=== PATIENT | male | born 1970 | race Caucasian/White ===

== ENCOUNTER 2021-01-01 08:31 | Outpatient (CLI) | payer OTHER, SELFPAY ==
--- NOTE | 2021-01-01 08:55 | EST_ITS ---
Patient Info Name: Kwaku Chavez Age: 50 years : 1970 Gender: Male Ht: 72 in Wt: 247 lbs BSA: 2.42 m2 HR: 86 bpm BP: 167 / 110 mmHg Heart Rhythm: Sinus Rhythm Exam Date: 01/01/2021 9:23 AM Exam Location: [facility] Patient Status: Outpatient Admit Date: 01/01/2021 Staff Ordering Physician: Hipolito Vo PA-C Passenger Car Upholsterer Apprentice: Faustina Yip RDCS Attending Provider: Hipolito Vo PA-C Exercise Technologist: Jeni Busch RDCS Exercise Physician: Carmelo Vlae DO Exam Type: CA stress echo Study Info Indications I10 - Essential (primary) hypertension Treadmill exercise stress echocardiogram is performed. Summary 1. 1. Negative Andrew exercise stress test for ischemic ST changes by ECG criteria. 2. 2. Good functional capacity, achieving 10 METs of workload. 3. 3. Baseline hypertension. 4. 4. Appropriate HR response to exercise. 5. 5. Appropriate HR recovery at 1 minute post exercise. 6. 6. Negative stress echocardiogram for ischemia by wall motion analysis. 7. 7. Patient informed of the above results. Stress Echo Findings Left Ventricle Appropriate increase in LV endocardial thickening with systole. Appropriate augmentation of contractility with systole. No wall motion abnormality. Left Ventricle Normal LV systolic function, no wall motion abnormality. Protocol: Andrew Stress ECG Details Stage: REST Duration (min): 4 min : 54 sec Speed (mph): 0.0 Grade (%): 0 HR (bpm): 86 SBP (mmHg): 167 DBP (mmHg): 110 METS: --- Stage: REST Duration (min): 13 min : 41 sec Speed (mph): 0.0 Grade (%): 0 HR (bpm): 105 SBP (mmHg): 167 DBP (mmHg): 110 METS: --- Stage: STAGE 1 Duration (min): 1 min : 0 sec Speed (mph): 1.7 Grade (%): 10 HR (bpm): 108 SBP (mmHg): 167 DBP (mmHg): 110 METS: --- Stage: STAGE 1 Duration (min): 2 min : 0 sec Speed (mph): 1.7 Grade (%): 10 HR (bpm): 118 SBP (mmHg): 167 DBP (mmHg): 110 METS: --- Stage: STAGE 1 Duration (min): 3 min : 0 sec Speed (mph): 1.7 Grade (%): 10 HR (bpm): 123 SBP (mmHg): 168 DBP (mmHg): 103 METS: --- Stage: STAGE 2 Duration (min): 1 min : 0 sec Speed (mph): 2.5 Grade (%): 12 HR (bpm): 126 SBP (mmHg): 168 DBP (mmHg): 103 METS: --- Stage: STAGE 2 Duration (min): 2 min : 0 sec Speed (mph): 2.5 Grade (%): 12 HR (bpm): 132 SBP (mmHg): 165 DBP (mmHg): 101 METS: --- Stage: STAGE 2 Duration (min): 3 min : 0 sec Speed (mph): 2.5 Grade (%): 12 HR (bpm): 134 SBP (mmHg): 165 DBP (mmHg): 101 METS: --- Stage: STAGE 3 Duration (min): 1 min : 0 sec Speed (mph): 3.4 Grade (%): 14 HR (bpm): 143 SBP (mmHg): 199 DBP (mmHg): 95 METS: --- Stage: STAGE 3 Duration (min): 2 min : 0 sec Speed (mph): 3.4 Grade (%): 14 HR (bpm): 149 SBP (mmHg): 199 DBP (mmHg): 95 METS: --- Stasveta
== END 2021-01-01 08:32 | disposition home or self-care (01) ==
PROVIDERS: PCP Family Medicine; Visit Provider Physician Assistant
DX: E11.9 Type 2 diabetes mellitus without complications (principal); E66.9 Obesity, unspecified; F17.200 Nicotine dependence, unspecified, uncomplicated; G47.33 Obstructive sleep apnea (adult) (pediatric); I10 Essential (primary) hypertension
CPT/HCPCS: 93351

== ENCOUNTER 2021-06-07 18:41 | Emergency (ER) | payer OTHER, SELFPAY ==
--- NOTE | ~2021-06-07 | XR_ITS ---
EXAMINATION: XR chest 2V EXAM DATE: 06/07/2021 21:33 INDICATION: Dyspnea, Sob/Weak/Fatigue Since 04/03/21, No Cardiac Hx. TECHNIQUE: Frontal and lateral projections of the chest obtained and reviewed. There is no prior alyssa dy for comparison. FINDINGS: The lungs are clear. There are no pleural effusions. The cardiomediastinal silhouette is within normal limits. There is no pneumothorax suspected. The bones and soft tissues are unremarkab le. There are cholecystectomy clips. IMPRESSION: No acute cardiopulmonary findings. Reviewed, dictated and finalized at location G. MATIC GRINDING MACHINE OPERATOR
[2021-06-07 19:00] VITALS: BP 150/106; PULSE 98; RESP 16; TEMP 36.1; O2SAT 99
[2021-06-07 21:13] VITALS: BP 135/101; PULSE 92; RESP 16; O2SAT 99
--- NOTE | 2021-06-07 21:20 | ECG_ITS ---
Measurements Intervals [place] Rate: 98 P: 7 NV: 162 QRS: 17 QRSD: 95 T: -8 QT: 326 QTc: 416 Interpretive Statements SINUS RHYTHM DELAYED PRECORDIAL R/S TRANSITION CONSIDER INFERIOR INFARCT, AGE INDETERMINATE BORDERLINE T WAVE ABNORMALITY- ANTERIOR LEADS BASELINE WANDER- I, II, III, AVL, AVF ABNORMAL ECG Electronically Signed On 06-08-2021 6:11:49 COTTAGE CHEESE MAKER by Carmelo Vale D.O.
--- NOTE | 2021-06-07 21:33 | ED.URI ---
HPI - URI/Sore Throat General Chief Complaint: Upper Respiratory Infection Stated Complaint: SOB/HIGH HR/CHEST BURNING Time Seen by Provider: 06/07/21 21:07 Source: patient History of Present Illness HPI Narrative: Patient presents with not feeling well. Reports that symptoms for the past couple weeks ports when he is resting he feels fine but when he gets up and walks around feels shortness of breath feels lightheaded and dizzy. Also reports intermittent chest aches. He also reports his heart rate would jump up to the 150s and 170s with physical activity sometimes. Denies any fevers denies cough denies any known sick contacts versus action against Covid. Also reports increased urinary frequency over this time. Related Data Allergies Allergy/AdvReac Type Severity Reaction Status Date / Time No Known Allergies Allergy Mild Verified 06/07/21 21:13 Review of Systems Review of Systems: CONSTITUTIONAL: Denies fever, chills, or sweats. EYES: Denies visual changes, redness, or discharge. ENT: Denies rhinorrhea, congestion, sore throat, or otalgia. CARDIOVASCULAR: Reports fast heart rate and chest pain RESPIRATORY: Denies cough GASTROINTESTINAL: Denies abdominal pain, nausea, vomiting, or diarrhea. GENITOURINARY: Denies dysuria or hematuria. SKIN: Denies rash or itching. MUSCULOSKELETAL: Denies back pain, joint pain, or myalgia. NEUROLOGIC: Denies headache, numbness, or focal weakness. PSYCHIATRIC: Denies anxiety or depression. All systems reviewed & are unremarkable except as noted in HPI and below PMFSH Past Medical History Medical History (Updated 06/07/21 @ 23:51 by Asif Head MD) Essential (primary) hypertension Mixed dyslipidemia Type 2 diabetes mellitus without complications Family History Family History Father Hypertension Family history of type 2 diabetes mellitus Mother Hypertension Family history of lupus erythematosus Grandparent Acute myocardial infarction, Onset Age: 36 Social History Social History Tobacco type: e-cigarettes/vaping Alcohol intake: never Exam Narrative: GENERAL: Well-appearing, well-nourished, and in no acute distress. HEAD: Normocephalic, atraumatic. EYES: PERRLA and EOMI. ENT: Nares clear, no rhinorrhea or epistaxis. Mucous membranes moist. NECK: Supple. No masses. No JVD CHEST: Clear to auscultation. No respiratory distress. No wheezes rales or rhonchi HEART: Regular rate and rhythm. No murmur heard. Normal peripheral pulses. ABDOMEN: Soft, nontender, nondistended, normal active bowel sounds. EXTREMITIES: Normal range of motion. No edema. SKIN: Warm, dry, no rash. NEURO: No focal deficits. Alert and oriented x3. PSYCH: Normal mood and affect. Course Reevaluation(s) Reevaluation #1: Patient reports feeling much improved results reviewed with patient patient is comfortable outpatient plan. Date: 06/07/21 Time: 23:49 Vital Signs Vital signs: Vital Signs Temperature 36.1 C L 06/07/21 19:00 Pulse Rate 98 06/07/21 19:00 Respiratory Rate 16 06/07/21 19:00 Blood Pressure 150/106 H 06/07/21 19:00 Pulse Oximetry 99 06/07/21 19:00 Temperature 36.1 C L 06/07/21 19:00 Pulse Rate 69 06/08/21 00:07 Respiratory Rate 15 06/08/21 00:07 Blood Pressure 112/74 06/08/21 00:07 Pulse Oximetry 98 06/08/21 00:07 MDM - URI/Sore Throat MDM Narrative Medical decision making narrative: H&P as above, vss, pt looks clinically well, exam reassuring, labs reassuring exception of A1c which was drawn this morning, img clinically unremarkable, additional labs/img considered, symptomatic relief available as needed, on reevaluation pt continues to looks clinically well. Suspect symptoms are related to poorly controlled diabetes given his elevation in A1c there is no evidence of DKA, dns ACS, severe sepsis. plan to tx/monitor as op w/ pcm f/u findi
[2021-06-07 21:37] VITALS: BP 139/93; PULSE 75; RESP 20; O2SAT 98
[2021-06-07 21:52] LABS: Glucose Point of Care 242 mg/dl (65-105)
[2021-06-07] MEDS: SODIUM CHLORIDE 0.9% IV 1,000 ML 999 ML IV CONT (21:57)
[2021-06-07 21:58] LABS: Basophils Absolute Auto 0.1 K/mm3 (0.0-0.1); Basophils Percent Auto 0.8 % (0.2-1.2); Eosinophils Absolute Auto 0.1 K/mm3 (0-0.3); Eosinophils Percent Auto 1.3 % (0-4.4); Hematocrit 44.2 % (42.0-52.0); Hemoglobin 15.6 g/dL (14.0-18.0); Immature Granulocyte Absolute 0.01 K/mm3 (0.00-0.031); Immature Granulocyte Percent A 0.1 % (0-0.5); Lymphocytes Absolute Auto 2.76 K/mm3 (0.9-3.2); Lymphocytes Percent Auto 35.2 % (18.3-44.2); Mean Corpuscular HGB Conc 35.3 g/dl (32-36); Mean Corpuscular Hemoglobin 29.6 pg (26-34); Mean Corpuscular Volume 83.9 fl (80-100); Monocytes Absolute Auto 0.5 K/mm3 (0.1-0.6); Monocytes Percent Auto 6.5 % (2.6-8.5); Neutrophils Absolute Auto 4.4 K/mm3 (1.3-6.7); Neutrophils Percent Auto 56.1 % (45.5-73.1); Platelet Count Result 236 k/mm3 (150-375); Red Blood Count 5.27 M/mm3 (4.6-6.20); Red Cell Distribution Width 11.6 % (11.5-14.5); White Blood Count 7.8 K/mm3 (4.5-10.0)
[2021-06-07 22:15] LABS: Add Urine Microscopic? YES; Appearance Urine Clear (Clear); Bilirubin Urine Negative (Negative); Blood Urine Negative (Negative); Color Urine Yellow (Yellow); Glucose Urine UA 3+ mg/dL (Negative); Ketones Urine Negative (Negative); Leukocyte Esterase Ur Negative LEU/UL (Negative); Mucus Urine Rare /lpf; Nitrate Urine Negative (Negative); Protein Urine Negative (Negative); RBC Urine 0-2 /hpf (0-2); Specific Grav Ur 1.028 (1.001-1.035); Urobilinogen Urine Negative mg/dL (<2.0); WBC Urine 0-3 /hpf
[2021-06-07 22:52] LABS: Alanine Aminotransferase 34 U/L (4-50); Albumin Level 4.4 g/dL (3.5-5.1); Alkaline Phosphatase 88 U/L (38-126); Anion Gap 8 mmol/L (8-16); Aspartate Amino Transferase 23 U/L (17-59); Bilirubin,Total 0.6 mg/dL (0.2-1.3); Blood Urea Nitrogen 21 mg/dL (9-20); Calcium 9.3 mg/dL (8.4-10.2); Carbon Dioxide 29 mmol/L (22-30); Chloride 99 mmol/L (98-107); Estimated CRCL calculation 91 ml/min; Estimated Glomerular Filt Rate > 60; Glucose 223 mg/dL (65-110); Potassium 3.6 mmol/L (3.4-5.0); Sodium 136 mmol/L (137-145)
[2021-06-07 23:03] LABS: Troponin I < 0.012 ng/mL (0.000-0.034)
[2021-06-08 00:07] VITALS: BP 112/74; PULSE 69; RESP 15; O2SAT 98
== END 2021-06-08 00:08 | disposition home or self-care (01) ==
PROVIDERS: Emergency Provider Emergency Medicine; PCP Family Medicine
DX: E11.65 Type 2 diabetes mellitus with hyperglycemia (principal); I10 Essential (primary) hypertension; E78.2 Mixed hyperlipidemia; F17.290 Nicotine dependence, other tobacco product, uncomplicated; Z79.84 Long term (current) use of oral hypoglycemic drugs
CPT/HCPCS: 36415; 71046; 80053; 81001; 82948; 84484; 85025; 93005; 96360; 99284; J7030

== ENCOUNTER 2022-02-11 00:13 | Day surgery (SDC) | payer OTHER, SELFPAY ==
[2022-01-31 13:12] VITALS: BMI 30.2
[2022-02-11 08:00] VITALS: BP 126/96; PULSE 82; RESP 18; TEMP 36.3; O2SAT 100; BMI 30.7
[2022-02-11 08:22] LABS: Glucose Point of Care 121 mg/dl (65-105)
--- NOTE | 2022-02-11 08:32 | WPDANESEPPF ---
Anes - Initial Pre Proc Eval Procedure: Operation Date: 02/11/22 09:00 Proposed Procedures p Screening Colonoscopy - Luigi Muro MD Date/Time: 02/11/22 08:32 Surgeon: Luigi Muro MD Pre Op Diagnosis: neoplasm screening Patient Data Age: 51 Gender: M Height: 1.83 m Weight: 102.8 kg Last Vital Signs Temp 97.4 F L 02/11/22 08:00 Pulse 82 02/11/22 08:00 Resp 18 02/11/22 08:00 BP 126/96 H 02/11/22 08:00 Pulse Ox 100 02/11/22 08:00 O2 Del Method Room Air 02/11/22 08:00 Allergies Allergy/AdvReac Type Severity Reaction Status Date / Time No Known Allergies Allergy Mild Verified 01/31/22 12:57 Home Medications Medication Instructions Recorded Confirmed Type hydrochlorothiazide 25 mg tablet 25 mg PO DAILY #90 tabs 02/01/21 01/31/22 Rx lisinopril 40 mg tablet 40 mg PO DAILY #90 tabs 02/01/21 01/31/22 Rx metformin 500 mg tablet,extended 1,000 mg PO DAILY #180 tabs 03/08/21 01/31/22 Rx release 24 hr atorvastatin 40 mg tablet See Rx Instructions .Route 03/22/21 01/31/22 Rx .COMPLEX #90 tabs metoprolol succinate 50 mg See Rx Instructions .Route 04/06/21 01/31/22 Rx tablet,extended release 24 hr .COMPLEX #180 tabs blood sugar diagnostic #100 ea 08/09/21 01/31/22 Rx blood-glucose meter #1 ea 08/09/21 01/31/22 Rx lancets 30 gauge and blood glucose #100 ea 08/09/21 01/31/22 Rx strips combo pack semaglutide 1 mg/dose (4 mg/3 mL) 1 mg (0.75 mL) subcut WEEKLY #3 mL 08/09/21 01/31/22 Rx subcutaneous pen injector (Ozempic) glimepiride 2 mg tablet See Rx Instructions .Route 10/25/21 01/31/22 Rx .COMPLEX #90 tabs ezetimibe 10 mg tablet See Rx Instructions .Route 12/20/21 01/31/22 Rx .COMPLEX #90 tabs Laboratory Tests 02/11/22 08:09 POC Capillary Glucose 121 mg/dl H mg/dl (65-105) Patient hx anesthesia problems: none Family hx anesthesia problems: none Results Review: All pre-operative results and documents have been reviewed as part of the pre-operative evaluation. [facility] Past Medical History Medical History Essential (primary) hypertension Mixed dyslipidemia Type 2 diabetes mellitus without complications Family History Family History Father Hypertension Family history of type 2 diabetes mellitus Dementia Mother Hypertension Family history of lupus erythematosus Grandparent Acute myocardial infarction, Onset Age: 36 Social History Social History Smoking status: Current every day smoker Tobacco type: e-cigarettes/vaping Alcohol intake: never Substance use type: does not use Living arrangements: alone Anes - Eval Final PreProcedure Day of Procedure 02/11/22 08:32 Patient weight: obese Heart: regular rate and rhythm Lungs: clear to auscultation Airway: Mallampati scale class II Neurological: alert and oriented Last oral intake: >/= 8 hours ASA classification: III Emergent: no Anesthetic plan: proceed Anesthesia type and monitoring: general GIVS and standard monitoring Results Review: All pre-operative results and documents have been reviewed as part of the pre-operative evaluation. Informed Consent: The patient's anesthetic plan and its attendant risks and benefits were discussed with the patient/family/POA. Questions were solicited and answers provided to the satisfaction of the patient/family/POA.
[2022-02-11] MEDS: LACTATED RINGERS 1,000 ML 150 ML IV CONT (08:38)
--- NOTE | 2022-02-11 08:49 | PM.HPGS ---
History of Present Illness History of Present Illness Consent: Risks, benefits, and alternatives have been discussed and questions answered. Patient agrees to proceed with procedure. Chief complaint: neoplasm screening Narrative: Kwaku Chavez is a 51 year old male here for first screening colonoscopy Review of Systems Constitutional: Constitutional: Denies headache(s) and Denies weakness Eyes: Eyes: Denies blurry vision ENT: Reports Normal hearing present, Denies headache(s) and Denies neck pain Cardiovascular: Cardiovascular: Denies chest pain and Denies dyspnea Respiratory: Respiratory: Denies dyspnea Gastrointestinal: Gastrointestinal: Reports no additional gastrointestinal complaints Genitourinary: Genitourinary: Denies dysuria Musculoskeletal: Musculoskeletal: Denies neck pain Integumentary/Breasts: Skin/Breast: Denies dry skin Neurologic: Reports Normal hearing present, Denies headache(s) and Denies weakness Psychiatric: Psychiatric: Denies anxiety Endocrine: Endocrine: Denies change in body appearance Hematologic/Lymphatic: Hematologic/Lymphatic: Denies easy bleeding Allergic/Immunologic: Allergic/Immunologic: Denies urticaria PMF Past Medical History Medical History (Updated 02/11/22 @ 08:50 by Luigi Muro MD) Colon cancer screening Essential (primary) hypertension Mixed dyslipidemia Type 2 diabetes mellitus without complications Family History Family History Father Hypertension Family history of type 2 diabetes mellitus Dementia Mother Hypertension Family history of lupus erythematosus Grandparent Acute myocardial infarction, Onset Age: 36 Social History Social History Smoking status: Current every day smoker Tobacco type: e-cigarettes/vaping Alcohol intake: never Substance use type: does not use Living arrangements: alone Meds Home Medications and Allergies Home Medications Medication Instructions Recorded Confirmed Type hydrochlorothiazide 25 mg tablet 25 mg PO DAILY #90 tabs 02/01/21 01/31/22 Rx lisinopril 40 mg tablet 40 mg PO DAILY #90 tabs 02/01/21 01/31/22 Rx metformin 500 mg tablet,extended 1,000 mg PO DAILY #180 tabs 03/08/21 01/31/22 Rx release 24 hr atorvastatin 40 mg tablet See Rx Instructions .Route 03/22/21 01/31/22 Rx .COMPLEX #90 tabs metoprolol succinate 50 mg See Rx Instructions .Route 04/06/21 01/31/22 Rx tablet,extended release 24 hr .COMPLEX #180 tabs blood sugar diagnostic #100 ea 08/09/21 01/31/22 Rx blood-glucose meter #1 ea 08/09/21 01/31/22 Rx lancets 30 gauge and blood glucose #100 ea 08/09/21 01/31/22 Rx strips combo pack semaglutide 1 mg/dose (4 mg/3 mL) 1 mg (0.75 mL) subcut WEEKLY #3 mL 08/09/21 01/31/22 Rx subcutaneous pen injector (Ozempic) glimepiride 2 mg tablet See Rx Instructions .Route 10/25/21 01/31/22 Rx .COMPLEX #90 tabs ezetimibe 10 mg tablet See Rx Instructions .Route 12/20/21 01/31/22 Rx .COMPLEX #90 tabs Allergies Allergy/AdvReac Type Severity Reaction Status Date / Time No Known Allergies Allergy Mild Verified 01/31/22 12:57 Vital Signs Vital Signs - 24 hr 02/11/22 08:00 Temperature 97.4 F L Pulse Rate 82 Respiratory Rate 18 Blood Pressure 126/96 H Pulse Oximetry 100 Oxygen Delivery Room Air Exam Const: General: comfortable and no acute distress HENMT: Face/Nose/Sinus: Normal nares present Eyes: General: appearance normal, both eyes and all related structures Neck: Neck: no JVD Resp: Auscultation: clear to auscultation bilaterally Cardio: Rate: regular rate Rhythm: regular rhythm GI: Inspection: non-distended GI Palp: Yes Soft to palpation Skin: General skin exam: normal color Neuro: General: gait normal Speech: normal speech Extrem: General: normal to inspection Psych: Mental Status: mental status g
[2022-02-11 09:14] VITALS: BP 110/78; PULSE 84; RESP 16; O2SAT 100
[2022-02-11 09:24] VITALS: BP 119/80; PULSE 82; RESP 20; O2SAT 97
[2022-02-11 09:34] VITALS: BP 121/79; PULSE 80; RESP 20; O2SAT 98
[2022-02-11 09:35] LABS: Glucose Point of Care 101 mg/dl (65-105)
== END 2022-02-11 09:37 | disposition home or self-care (01) ==
PROVIDERS: PCP Family Medicine; Visit Provider Internal Medicine Gastroenterology
PROC: 0DJD8ZZ Inspection of Lower Intestinal Tract, Via Natural or Artificial Opening Endoscopic (ICD-10-PCS; CPT 45378; principal; 2022-02-11 09:00)
DX: Z12.11 Encounter for screening for malignant neoplasm of colon (principal); E11.9 Type 2 diabetes mellitus without complications; I10 Essential (primary) hypertension; E78.5 Hyperlipidemia, unspecified; Z79.84 Long term (current) use of oral hypoglycemic drugs; F17.210 Nicotine dependence, cigarettes, uncomplicated; E66.9 Obesity, unspecified; Z68.30 Body mass index [BMI] 30.0-30.9, adult
CPT/HCPCS: 45385; 82948; 88305; J2001; J2704; J7120

== ENCOUNTER 2023-08-28 08:13 | Outpatient (CLI) | payer BC, SELFPAY ==
[2023-08-29 16:04] VITALS: BMI 30.5
--- NOTE | 2023-08-29 16:04 | WPDHOMESLEEP ---
Sleep Study - Home Unattended Date of Study: 08/28/23 Ordering Provider: Jojo Weller DO Interpreting Provider: Jojo Weller DO Home Sleep Study Type: Watch PAT Height: 1.83 m Weight: 102.058 kg Body Mass Index: 30.5 Neck Circumference (inches): 17.5 [place]: 7 Reason for Sleep Study Previously diagnosed VIVI. Couldn't tolerate CPAP. Sleep History The patient is a 53-year-old with hypertension, diabetes, hyperlipidemia and previously diagnosed sleep apnea that had a sleep study ordered to re-evaluate treatment options for his sleep apnea. The patient denies awakening from sleep short of breath. He occasionally awakens at night with heartburn, belching or cough. He occasionally snores and it is occasionally loud enough that others complain. He occasionally has trouble sleeping when he has a cold. He rarely wakes up gasping for air throughout the night. He occasionally has breathing problems at night observed by himself or others. He rarely sweats excessively at night. He rarely has heart palpitations or irregular heartbeats during the night. He denies falling asleep during the day and while driving. He denies sleep paralysis and cataplexy. He rarely has trouble at school or work due to sleepiness. He rarely experiences vivid dreamlike scenes upon awakening or falling asleep. He denies feeling afraid of going to sleep. He occasionally remembers his dreams. He occasionally has nightmares. He occasionally has thoughts racing through his mind. He occasionally feels sad, depressed and anxious. He frequently has muscular tension. He frequently notices parts of his body jerk. He occasionally kicks during the night. He denies having crawling and aching feelings in his legs and denies having leg pain during the night. He denies grinding his teeth during sleep and denies awakening with morning jaw pain. He is occasionally bothered by pain during the day and occasionally awakened by pain during the night. He frequently wakes up feeling stiff in the morning. He frequently wakes up with sore or achy muscles. He frequently wakes up with pain in the neck, spine and other joints. He goes to bed at 12:00 a.m. on weekdays and at 2:00 a.m. on the weekends. It takes him 1 hour to fall asleep. He wakes up 3-4 times throughout the night to urinate and change positions. He is able to fall back asleep within 10 minutes. He wakes up at 6:30 a.m. on weekdays and at 7:00 a.m. on the weekends. He typically gets 4 hours of sleep per night. He will stay in bed for 10 minutes after waking up in the morning. He currently lives with his and son. He denies consuming any caffeinated beverages within 2 hours of bedtime. He denies engaging in physical exercise before bedtime. He denies reading and watching television before falling asleep. He will take naps in afternoon or the evening but they are not refreshing. He consumes 6-7 cans of caffeinated soda per day. He denies tobacco, alcohol and recreational drug use. [facility] Past Medical History Medical History Colon cancer screening Essential (primary) hypertension Mixed dyslipidemia Type 2 diabetes mellitus without complications Family History Family History Father Hypertension Family history of type 2 diabetes mellitus Dementia Mother Hypertension Family history of lupus erythematosus Grandparent Acute myocardial infarction, Onset Age: 36 Social History Social History Smoking status: Current every day smoker Tobacco type: e-cigarettes/vaping Alcohol intake: never Substance use type: does not use Do You Feel Safe in your Home?: Yes Lack of Transportation: No Lack of Food: Never True Current Housing: I Have Housing Concerned About Future Housing: No Difficulty Paying Gas/Electri
== END 2023-08-29 07:30 | disposition home or self-care (01) ==
LOC: ANHCSM 08:14
PROVIDERS: PCP Family Medicine; Visit Provider Family Medicine
DX: G47.33 Obstructive sleep apnea (adult) (pediatric) (principal)
CPT/HCPCS: 95800

== ENCOUNTER 2023-12-25 14:25 | Outpatient (CLI) | payer BC, SELFPAY ==
--- NOTE | 2023-12-25 14:31 | ECHO_ITS ---
Patient Info Name: Kwaku Chavez Age: 53 years : 1970 Gender: Male Ht: 72 in Wt: 230 lbs BSA: 2.33 m2 HR: 81 bpm BP: 148 / 103 mmHg Heart Rhythm: Sinus Rhythm Technical Quality: Good Exam Date: 12/25/2023 2:39 PM Exam Location: Echo Lab Patient Status: Outpatient Admit Date: 12/25/2023 Staff Ordering Physician: Jojo Weller DO Alarm Signal Operator: Zuleyma Kamara RDCS Attending Provider: Jojo Weller DO Referring Physician: Nithin MORALES; Exam Type: CA echo doppler color flow Study Info Indications - elevated central apnea index on sleep study Complete two-dimensional, color flow and Doppler transthoracic echocardiogram is performed. Summary 1. Complete two-dimensional, color flow and Doppler transthoracic echocardiogram is performed. 2. Left ventricular chamber dimension is normal. 3. Left ventricular systolic function is normal, estimated at 60-65%. 4. The left ventricular diastolic function is grade I diastolic dysfunction. 5. E/e' 8 is minimally elevated. 6. No pulmonary hypertension, estimated pulmonary arterial systolic pressure is 24 mmHg. Left Ventricle E/e' 8 is minimally elevated. Left ventricular chamber dimension is normal. Left ventricular systolic function is normal, estimated at 60-65%. The left ventricular diastolic function is grade I diastolic dysfunction. Right Ventricle Right ventricular systolic function is normal and with normal TAPSE 2.0 cm. Right ventricular chamber dimension is normal. Left Atria Left atrial chamber dimension is normal. Right Atria Right atrial chamber dimension is normal. Aortic Valve The aortic valve is trileaflet. There is no aortic valve stenosis. There is no aortic valve regurgitation. Pulmonic Valve There is no pulmonic regurgitation. Mitral Valve There is no mitral valve stenosis. There is no mitral valve regurgitation. Tricuspid Valve There is no tricuspid valve regurgitation. No pulmonary hypertension, estimated pulmonary arterial systolic pressure is 24 mmHg. Pericardium/Pleural There is no pericardial effusion. Inferior Vena Cava Normal inferior vena cava with >50% collapse upon inspiration consistent with normal right atrial pressure, 5 mmHg. Aorta The aortic root size at the sinus of Valsalva is normal. Left Ventricular Outflow Tract Name Value Normal LVOT 2D LVOT Diameter 2.0 cm LVOT Doppler LVOT Peak Gradient 2 mmHg LVOT Mean Gradient 1 mmHg LVOT VTI 14 cm LVOT VTI/AV VTI Ratio 0.6 LVOT Stroke Volume 46 ml LVOT CO 3.6 l/min LVOT CI 1.5 l/min/m2 Pulmonic Valve Name Value Normal RVOT Doppler RVOT Peak Gradient 2 mmHg PV Doppler
== END 2023-12-25 14:26 | disposition home or self-care (01) ==
LOC: ANHCARD 14:28
PROVIDERS: PCP Family Medicine; Visit Provider Family Medicine
DX: G47.31 Primary central sleep apnea (principal)
CPT/HCPCS: 93306

== ENCOUNTER 2024-01-12 08:40 | Outpatient (CLI) | payer BC, SELFPAY ==
--- NOTE | 2024-02-02 23:35 | WPDSLEEPSTUD ---
Sleep Study Date of Study: 01/12/24 Ordering Provider: Jojo Weller DO Interpreting Physician: Lois Jean MD Sleep Study Type: CPAP Titration Height: 1.83 m Weight: 102.965 kg Body Mass Index: 30.7 Neck Circumference (inches): 17.5 [place]: 7 Reason for Sleep Study * 08/28/2023 [facility] home sleep test with severe obstructive sleep apnea, apnea hypopnea index 43.3 with desaturation down to 71%; elevated central apnea index of 5.9. He returns for a CPAP titration. Sleep History Kwaku Chavez is a 53-year-old man with hypertension, diabetes, hyperlipidemia and previously diagnosed sleep apnea who was not able to tolerate PAP. He had a home sleep test 08/28/2023 showing severe obstructive sleep apnea with mild central sleep apnea. The following sleep history is from his August 27 sleep questionnaire. He does not awaken at night feeling short of breath. He occasionally awakens at night with heartburn, belching or coughing. He occasionally snores and it is occasionally loud enough that others complain. He occasionally has trouble sleeping when he has a cold. He rarely wakes up gasping for air at night. He occasionally has breathing problems at night observed by others. He rarely sweats excessively at night. He rarely has heart palpitations or irregular heartbeats during the night. He denies falling asleep during the day or while driving. He denies feeling muscle weakness on falling asleep or upon waking. He does not have muscle weakness with strong emotion. He rarely has trouble at work due to excessive sleepiness. He rarely experiences vivid dreamlike scenes upon awakening or falling asleep. He denies feeling afraid of going to sleep. He occasionally remembers his dreams. He occasionally has nightmares. He occasionally has thoughts racing through his mind. He occasionally feels sad, depressed, or anxious. He frequently notices parts of his body jerk. He occasionally kicks during the night. He denies having crawling and aching feelings in his legs or having leg pain during the night. He denies grinding his teeth during sleep as well as waking with morning jaw pain. He is occasionally bothered by pain during the day, occasionally awakened by pain during the night. He frequently wakes up feeling stiff in the morning. He frequently wakes up with sore or achy muscles. He frequently wakes up with pain in the neck, spine and other joints. Normal bedtime is 12:00 a.m. on weekdays and at 2:00 a.m. on the weekends. It takes him 1 hour to fall asleep. He wakes up 3-4 times throughout the night to urinate and change positions. He is able to return to sleep within 10 minutes. He wakes at 6:30 a.m. on weekdays and at 7:00 a.m. on the weekends. He typically gets 4 hours of sleep per night. He stays in bed for 10 minutes after waking up in the morning. He currently lives with his and son. He takes naps in afternoon or the evening however a short nap lasting 10-15 minutes is not refreshing. Habits: Tobacco: daily vaping, former cigarette smoker Caffeine: 6-7 cans of caffeinated soda per day. Alcohol: none Recreational substances: none PMFSH Past Medical History Medical History (Updated 02/02/24 @ 23:58 by Lois Jean MD) Colon cancer screening Essential (primary) hypertension Generalized anxiety disorder Mixed dyslipidemia Obstructive sleep apnea (adult) (pediatric) Type 2 diabetes mellitus without complications Family History Family History Father Hypertension Family history of type 2 diabetes mellitus Dementia Mother Hypertension Family history of lupus erythematosus Grandparent Acute myocardial infarction, Onset Age: 36 Social History Social History Smoking status: Current every day smoker Tobacco type: e-cigarette
[2024-02-03 00:04] VITALS: BMI 30.7
== END 2024-01-13 06:41 | disposition home or self-care (01) ==
LOC: ANHCSM 08:40
PROVIDERS: PCP Family Medicine; Visit Provider Family Medicine
DX: G47.33 Obstructive sleep apnea (adult) (pediatric) (principal); G47.61 Periodic limb movement disorder
CPT/HCPCS: 95811

== ENCOUNTER 2024-03-22 10:01 | Outpatient (CLI) | payer BC, SELFPAY ==
--- NOTE | ~2024-03-22 | XR_ITS ---
CHEST RADIOGRAPH, PA AND LATERAL CLINICAL HISTORY: Coughed up blood and had blood tinged vomiting, hemoptysis . COMPARISON: 06/07/2021 TECHNIQUE: PA and lateral views of the chest. FINDINGS The cardiomediastinal silhouette is unremarkable. The lungs are clear. Visualized osseous structures and soft tissues are unremarkable. IMPRESSION: No focal infiltrate or effusion. Reviewed, dictated and finalized at location A. OENGRAVING MACHINE OPERATOR/TENDER
== END 2024-03-22 10:02 | disposition home or self-care (01) ==
PROVIDERS: PCP Family Medicine; Visit Provider Family Medicine
DX: R04.2 Hemoptysis (principal)
CPT/HCPCS: 71046

== ENCOUNTER 2025-04-01 14:34 | Outpatient (CLI) | payer BC, SELFPAY ==
--- NOTE | ~2025-04-01 | CT_ITS ---
EXAMINATION: CT lung screening DATE: 04/01/2025 14:48 INDICATION: F17.200 - Nicotine dependence, unspecified, uncomplicated TECHNIQUE: Computed tomography (CT) of the chest was performed without intravenous contrast. Additional 3D reconstructions utilizing coronal maximum intensity projection (MIP) were performed. Automated exposure control and iterative reconstruction technique were employed. The dose-length product was 19 2.45 mGy-cm. COMPARISON: None FINDINGS: 4 moderate nodule right middle lobe on series 4, image 69. 2 mm nodules in the right upper lobe on image 43 and image 21. 3 mm and 4 mm nodules in the left lower lobe on images 78 and 80 respectively. No pneumonia, pulmonary edema or pleural effusion. Heart size is normal. Small amount of atherosclerotic coronary artery calcification. No pericardial effusion. Thoracic aorta is normal in caliber. No pathologically enlarged thoracic lymphadenopathy. Cholecystectomy clips at the gallbladder fossa. Multiple dystrophic pancreatic calcifications consistent with sequela of chronic pancreatitis. Mild to moderate thoracic spondylosis IMPRESSION: 1. . Lung-RADS category 2: Benign appearance or behavior. Continue annual screening with noncontrast low-dose chest CT in 12 months. Reviewed, dictated and finalized at location A. R COUNTER IMPRESSION: 1. . Lung-RADS category 2: Benign appearance or behavior. Continue annual scree julián with noncontrast low-dose chest CT in 12 months.
--- OUTSIDE RECORDS SUMMARY | 2025-04-01 16:25 | XMS_ITS | Encounter Summary ---
Author Organization [facility] Address 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
--- OUTSIDE RECORDS SUMMARY | 2025-04-01 16:25 | XMS_ITS | Encounter Summary ---
Author Organization [facility] Address 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
--- OUTSIDE RECORDS SUMMARY | 2025-04-01 16:25 | XMS_ITS | Clinical Summary ---
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
== END 2025-04-01 14:35 | disposition home or self-care (01) ==
LOC: ANHIMG 14:36
PROVIDERS: PCP Family Medicine; Visit Provider Family Medicine
DX: Z12.2 Encounter for screening for malignant neoplasm of respiratory organs (principal); Z87.891 Personal history of nicotine dependence
CPT/HCPCS: 71271

== ENCOUNTER 2025-04-29 09:20 | Outpatient (CLI) | payer BC, SELFPAY ==
--- NOTE | ~2025-04-29 | CT_ITS ---
EXAMINATION: CT abdomen w con DATE: 04/29/2025 09:42 INDICATION: Other chronic pancreatitis. TECHNIQUE: Computed tomography (CT) of the abdomen was performed with 100 mL Omnipaque 350 intravenous contrast. Automated exposure control and iterative reconstruction technique were employed. The dose-length product was 687.75 mGy-cm. COMPARISON: Chest CT 04/01/2025 FINDINGS: The visualized portions of the lung bases demonstrate mild emphysema. No pleural effusion. The heart size is normal. No pericardial effusion. The liver and spleen are normal. There are changes of cholecystectomy. There are calcifications in the pancreas with a 1.6 cm cystic lesion in the uncinate process, consistent with chronic pancreatitis. The adrenal glands and right kidney are normal. There is a 2.3 cm cyst in left kidney. There are no dilated loops of bowel. The appendix is normal. There are no pathologically enlarged lymph nodes. There is no free intraperitoneal fluid. There is moderate lumbar spondylosis. There are bridging endplate osteophytes at multiple levels in the thoracic spine, consistent with diffuse idiopathic skeletal hyperostosis (DISH). IMPRESSION: 1. Chronic pancreatitis. Reviewed, dictated and finalized at location E. Y OPERATOR IMPRESSION: 1. Chronic pancreatitis.
--- OUTSIDE RECORDS SUMMARY | 2025-04-29 09:41 | XMS_ITS | Encounter Summary ---
Author Organization [facility] Address 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
--- OUTSIDE RECORDS SUMMARY | 2025-04-29 09:41 | XMS_ITS | Clinical Summary ---
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
--- OUTSIDE RECORDS SUMMARY | 2025-04-29 09:41 | XMS_ITS | Clinical Summary ---
Author Organization [facility] Address [address] [place] [address] Care Team Providers Care System Safety Engineer Name Role Phone Pcp, No Primary Care Provider [phone] Allergies No known active allergies Medications atorvastatin (LIPITOR) 40 MG tablet atorvastatin 40 mg tablet TK 1 T PO D Active lisinopriL-hydr ochlorothiazide (ZESTORETIC) 20-25 mg tablet lisinopril 20 mg-hydrochloroth iazide 25 mg tablet TK 1/2 T PO D Active metFORMIN (GLUCOPHATE-XR) 500 MG 24 hr tablet TK 1 T PO D 0 Active metoprolol (TOPROL-XL) 25 MG 24 hr tablet metoprolol succinate ER 25 mg tablet,extended release 24 hr TK 1 T PO QD Active ezetimibe (ZETIA) 10 mg tablet ezetimibe 10 mg tablet TK 1 T PO D Active Social History Tobacco Use Types Packs/Day Years Used Date Smoking Tobacco: Never Smokeless Tobacco: Never Sex and Gender Information Value Date Recorded Sex Assigned at Not on file Legal Sex Male 7:00 PM EST Gender Identity Not on file Sexual Orientation Not on file Last Filed Vital Signs Vital Sign Reading Time Taken Comments Blood Pressure - - Pulse 94 05/25/2020 12:55 PM BRAIDING MACHINE OPERATOR Temperature 36.6 C (97.9 F) 05/25/2020 12:55 PM BRAIDING MACHINE OPERATOR Respiratory Rate - - Oxygen Saturation 97% 05/25/2020 12:55 PM BRAIDING MACHINE OPERATOR Inhaled Oxygen Concentration - - Weight - - Height - - Body Mass Index - - Plan of Treatment Not on file Medical Devices Not on file Insurance [employer] Care Teams System Safety Engineer Relationship Specialty Start Date End Date Pcp, No PCP - General Family Medicine 04/04/21
--- OUTSIDE RECORDS SUMMARY | 2025-04-29 09:41 | XMS_ITS | Encounter Summary ---
Author Organization [facility] Address 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
== END 2025-04-29 09:21 | disposition home or self-care (01) ==
PROVIDERS: PCP Family Medicine; Visit Provider Family Medicine
DX: K86.1 Other chronic pancreatitis (principal)
CPT/HCPCS: 74160; Q9967